=== PATIENT | male | born 1940 | race Caucasian/White ===

== ENCOUNTER 2017-01-28 11:08 | Day surgery (SDC) | payer MEDICARE, OTHER ==
[~2017-01-28 11:08] MED LIST: Betamethasone Acetate/Betamethasone Sod Phosphate 30 MG/5 ML MDV ONE; Iopamidol 408 MG/ML 50 ML SDV ONE; Lidocaine 2% 5 ML SDV ONE; Ropivacaine 0.5% 5 MG/ML 30 ML SDV ONE
--- NOTE | 2017-01-28 20:33 | OR ---
SURGEON: Tricia Padilla D.O. DATE OF PROCEDURE: 01/28/2017 OR STAFF PRESENT: 1. Miquel Hardin RN. 2. Bernice Burce RN. 3. Jewell Moe RN. 4. RT Gunner. WOUND CLASSIFICATION: I. PREOPERATIVE DIAGNOSES: 1. Left hip degenerative joint disease. 2. Left hip pain. POSTOPERATIVE DIAGNOSES: 1. Left hip degenerative joint disease. 2. Left hip pain. PROCEDURES PERFORMED: 1. Left intraarticular hip injection. 2. Fluoroscopic guidance for needle placement. 3. Local with oral Valium for sedation. SCREENING QUESTIONS: The patient answered "No" to all the following questions: 1. Are you allergic to iodine, Betadine, or latex? 2. Do you have a bleeding disorder? 3. Do you have any joint replacements, heart valve replacements or a pacemaker? 4. Are you allergic to anti-inflammatories? 5. Are you on any blood thinners? 6. Do you have any current local or systemic infections? DESCRIPTION OF PROCEDURE: The patient had the procedure thoroughly explained including all possible risks, benefits and alternatives. Consent was signed in my clinic indicating understanding and willingness to proceed. The patient presented to [facility] and was escorted to the dressing room to disrobe and change into a hospital gown. Preoperative vital signs were taken and stable. The patient reported that Valium was taken prior to the procedure. The patient was brought to the procedure room and placed in the supine position on the procedure room table. The hip landmarks were identified for the intra- articular injection and the femoral pulse was palpated and marked. The skin was marked senior living between the femoral pulse and greater trochanter for a skin wheal. The skin was sterilely prepped with ChloraPrep and draped. All personnel in the operating room were dressed in appropriate attire including surgical scrubs, head and shoe covers. This was to ensure sterility while in the treatment room. During the time fluoroscopy was in use, all personnel in the operating room wore lead garcia with thyroid collars. Sterile technique was used during the procedure. The fluoroscope was placed for the intra-articular hip injection. There were no signs of infection at the site for needle insertion. The skin was anesthetized with 2% Lidocaine with a 27-gauge 1.5 inch needle. Then using a 22-gauge 3.5 inch spinal needle, I advanced to the capsule of the hip joint, a pop was felt. Under direct fluoroscopic guidance verifying needle positioning, 0.2 cubic centimeters increments of IsoVue-200 dye was injected and shown to outline the intra-articular space. No intravascular flow pattern was observed under live fluoroscopy. After negative aspiration, a mixture of 0.5% Ropivacaine, 2% Lidocaine, and 12 milligrams of Celestone was slowly injected in small increments after negative aspiration of heme. No paresthesias were noted. The needle was cleared prior to removal from the skin and no adverse reactions were noted. The patient was then brought to the recovery room awake and in good condition by my staff. After a brief stay in the recovery room, the patient was discharged to home. Both oral and written discharge and followup instructions were given to the patient. The patient will follow up in the clinic in two to three weeks postprocedure to evaluate the efficacy. The patient verbalized understanding including understanding those signs and symptoms that would require emergency care and knows how to contact the office if there are any problems or questions in the meantime. PREOPERATIVE PAIN: 9/10. POSTOPERATIVE PAIN: /10. FOLLOWUP: Follow up in the Pain Clinic in 3 weeks. [id number] / ROMY /[id number]
== END 2017-01-28 13:30 | disposition home or self-care (01) ==
LOC: MW.SDS 11:08
PROVIDERS: ATTEND Anesthesiology
DX: M16.12 Unilateral primary osteoarthritis, left hip (principal); M79.1 Myalgia; M51.16 Intervertebral disc disorders with radiculopathy, lumbar region; M70.62 Trochanteric bursitis, left hip; M70.61 Trochanteric bursitis, right hip; Z98.890 Other specified postprocedural states; Z79.899 Other long term (current) drug therapy
CPT/HCPCS: 20610; J0702; J2795; Q9966